=== PATIENT | male | born 1965 | race Caucasian/White ===

== ENCOUNTER 2024-02-17 13:13 | Emergency (ER) | payer BC ==
[2024-02-17] MEDS: Clindamycin HCl 150 MG Cap PO ONE (14:27)
== END 2024-02-17 14:30 | disposition home or self-care (01) ==
LOC: FB.ED 13:13
DX: K11.20 Sialoadenitis, unspecified (principal); J32.0 Chronic maxillary sinusitis
CPT/HCPCS: 99283; A9270-GY

== ENCOUNTER 2024-11-25 18:50 | Emergency (ER) | payer OTHER, BC ==
[2024-11-25 19:06] LABS: BASOPHILS ABSOLUTE AUTO 0.1 x10-3/uL (0.0-0.3); BASOPHILS PERCENT AUTO 0.8 % (0.3-3.8); EOSINOPHILS ABSOLUTE AUTO 0.5 x10-3/uL (0.0-0.6); EOSINOPHILS PERCENT AUTO 5.1 % (0.1-6.8); HEMATOCRIT 43.3 % (38.3-50.1); HEMOGLOBIN 14.9 g/dL (12.9-17.7); LYMPHOCYTES ABSOLUTE AUTO 2.3 x10-3/uL (0.5-4.5); LYMPHOCYTES PERCENT AUTO 24.5 % (15.8-45.3); MEAN CORPUSCULAR HEMOGLOBIN 28.3 pg (27.0-33.3); MEAN CORPUSCULAR HGB CONC 34.3 g/dL (28.7-35.3); MEAN CORPUSCULAR VOLUME 82.4 fL (80.8-98.7); MONOCYTES ABSOLUTE AUTO 0.6 x10-3/uL (0.0-1.2); MONOCYTES PERCENT AUTO 6.6 % (5.5-15.2); NEUTROPHILS ABSOLUTE AUTO 5.9 x10-3/uL (1.7-6.9); PLATELET COUNT,PLT 261 x10(3)uL (117-477); RED BLOOD CELL COUNT 5.26 x10(6)uL (3.90-5.90); RED CELL DISTRIBUTION WIDTH 13.4 % (12.4-15.0); WHITE BLOOD CELL COUNT,WBC 9.3 x10-3/uL (3.2-10.1)
[2024-11-25 19:12] LABS: BLOOD UREA NITROGEN,BUN 15 mg/dL (7-18); CALCIUM 9.5 mg/dL (8.6-10.2); CARBON DIOXIDE,CO2 29 mmol/L (21-32); CHLORIDE,CL 103 mmol/L (100-110); CREATININE 1.5 mg/dL (0.70-1.30); ESTIMATED GFR 53 mL/min (>60); GLUCOSE RANDOM 111 mg/dL (80-116); POTASSIUM,K 3.1 mmol/L (3.5-5.3); SODIUM,NA 140 mmol/L (135-145)
[2024-11-25 19:17] LABS: A/G RATIO 0.9; ALANINE AMINOTRANSFERASE,ALT 23 U/L (12-36); ALBUMIN 3.5 g/dL (3.5-5.2); ALKALINE PHOSPHATASE 91 IU/L (56-112); ASPARTATE AMNIOTRANSFERASE,AST 17 IU/L (5-25); BILIRUBIN TOTAL 1.4 mg/dL (0.1-1.3); PROTEIN TOTAL,TP 7.4 g/dL (6.0-8.0)
[2024-11-25] MEDS: Iopamidol 755 Mg/ML 100 ML Bottle IV SCH (19:26)
[2024-11-25] MEDS: Ketorolac 30 MG/ML SDV IVPUSH ONE (19:53)
[2024-11-25] MEDS: Diphtheria,Pertussis(Acell),Tetanus Vaccine 0.5 ML Syringe IM ONE (19:55)
[2024-11-25] MEDS: Cephalexin 500 MG Cap PO ONE (20:44)
== END 2024-11-25 20:15 | disposition home or self-care (01) ==
LOC: FB.ED 18:50
DX: S81.831A Puncture wound without foreign body, right lower leg, initial encounter (principal); I10 Essential (primary) hypertension; E78.00 Pure hypercholesterolemia, unspecified; Z79.899 Other long term (current) drug therapy; V29.99XA Rider (driver) (passenger) of other motorcycle injured in unspecified traffic accident, initial encounter; Z23 Encounter for immunization
CPT/HCPCS: 36415; 70450; 73590-RT; 74177; 80053; 85025; 90471; 90715; 96374; 99284-25; A9270-GY; J1885; Q9967